=== PATIENT | female | born 1985 | race Caucasian/White ===

== ENCOUNTER 2018-02-19 22:34 | Emergency (ER) | payer OTHER ==
[~2018-02-19] VITALS: Ht 167.6 cm; Wt 104.5 kg
[2018-02-19 22:36] VITALS: Ht 167.6 cm; Wt 104.5 kg
[2018-02-20] MEDS ORDERED: ROBAXIN-750750 MG PO (00:33)
[2018-02-20] MEDS ORDERED: VOLTAREN75 MG PO (00:33)
[2018-02-20 01:18] VITALS: BP 130/89
== END 2018-02-20 01:18 | disposition home or self-care (01) ==
LOC: D.ER 22:34
DX: S16.1XXA Strain of muscle, fascia and tendon at neck level, initial encounter (principal); V43.52XA Car driver injured in collision with other type car in traffic accident, initial encounter; Y93.89 Activity, other specified; Y92.410 Unspecified street and highway as the place of occurrence of the external cause; R51 Headache; M54.6 Pain in thoracic spine

== ENCOUNTER 2020-04-19 19:59 | Emergency (ER) | payer OTHER ==
[~2020-04-19] VITALS: Ht 167.6 cm; Wt 106.8 kg
[~2020-04-19 19:59] MED LIST: ROBAXIN-750750 MG PO; VOLTAREN75 MG PO
[2020-04-19 20:14] VITALS: Ht 167.6 cm; Wt 106.8 kg
[2020-04-19] MEDS ORDERED: VOLTAREN75 MG PO (21:05)
[2020-04-19] MEDS ORDERED: METHOCARBAMOL500 MG PO (21:05)
[2020-04-19 21:49] VITALS: BP 124/78
== END 2020-04-19 21:50 | disposition home or self-care (01) ==
LOC: D.ER 19:59
DX: S16.1XXA Strain of muscle, fascia and tendon at neck level, initial encounter (principal); M25.519 Pain in unspecified shoulder; M54.2 Cervicalgia; V89.2XXA Person injured in unspecified motor-vehicle accident, traffic, initial encounter; Y93.9 Activity, unspecified; Y92.9 Unspecified place or not applicable; M54.6 Pain in thoracic spine